=== PATIENT | male | born 1990 | race Caucasian/White ===

== ENCOUNTER 2022-02-25 03:15 | Emergency (ER) | payer OTHER, SELFPAY ==
[2022-02-25 02:36] VITALS: BP 143/91; PULSE 121; RESP 16; TEMP 36.2; O2SAT 99
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
--- NOTE | 2022-02-25 03:45 | PC.NURSE ---
RN basil blood for [employer]. Pt consenting. Two vials of blood collected and sealed in evidence box. [employer] present during collection.
[2022-02-25] MEDS: LORazepam (*CRX) 1 MG TABLET PO (03:58)
[2022-02-25 04:47] VITALS: BP 133/85; PULSE 115; RESP 22; O2SAT 98
== END 2022-02-25 04:49 | disposition home or self-care (01) ==
PROVIDERS: Emergency Provider Emergency Medicine
DX: F41.9 Anxiety disorder, unspecified (principal); V89.2XXA Person injured in unspecified motor-vehicle accident, traffic, initial encounter
CPT/HCPCS: 99283; A9270